=== PATIENT | female | born 1965 | race Hispanic/Latino ===

== ENCOUNTER 2023-06-02 13:48 | Emergency (ER) | payer MEDICAID, SELFPAY ==
[2023-06-02 14:00] VITALS: BP 134/72; PULSE 66; RESP 14; TEMP 37.3; O2SAT 97
--- NOTE | 2023-06-02 14:05 | ED.FEMALEGU ---
HPI - Female Genitourinary General Chief complaint: Urogenital-Female Stated complaint: urinary issue Source: patient and RN notes reviewed Mode of arrival: ambulatory Limitations: no limitations History of Present Illness HPI Narrative: 57 y/o female presented for c/o burning with urination and frequency over the past few days. Reports pain to bilateral flank areas, and nausea. Denies hematuria, fever/chills. Taking AZO. Related Data Home Medications Medication Instructions Recorded Confirmed dapagliflozin propanediol 10 mg mg 06/02/23 tablet (Farxiga) ergocalciferol (vitamin D2) 1,250 06/02/23 mcg (50,000 unit) capsule levothyroxine 25 mcg tablet mcg 06/02/23 lisinopril 20 tablet 06/02/23 mg-hydrochlorothiazide 25 mg tablet lovastatin 40 mg tablet mg 06/02/23 metformin 500 mg tablet,extended mg PO 06/02/23 release 24 hr propranolol 40 mg tablet mg 06/02/23 Allergies Allergy/AdvReac Type Severity Reaction Status Date / Time No Known Allergies Allergy Verified 06/02/23 14:42 Review of Systems Review of Systems: CONSTITUTIONAL: Denies body aches, fever, chills, or sweats. CARDIOVASCULAR: Denies chest pain, palpitations, or edema. RESPIRATORY: Denies cough or dyspnea. GASTROINTESTINAL: Denies abdominal pain, nausea, vomiting, or diarrhea. GENITOURINARY: Reports dysuria, frequency, urgency, flank pain SKIN: Denies rash, itching, or wounds. MUSCULOSKELETAL: Denies back pain or myalgia. [facility] Past Medical History Medical History (Updated 06/02/23 @ 15:05 by Genia Galdamez APRN) Diabetes Hypertension Comments At time of signature, I have reviewed and agree with nursing past medical, surgical, social and family history unless otherwise noted. Please see nursing chart for further information. There is no relevant family history pertinent to the presenting complaint Exam Narrative: GENERAL: Well-appearing and in no acute distress. HEAD: Normocephalic EYES: EOMI. . ENT: Mucous membranes pink and moist. NECK: Normal AROM. Supple. CHEST: No respiratory distress. Clear to auscultation. HEART: Regular rate and rhythm. ABDOMEN: Soft, tender to bilateral upper quadrants, nondistended, normal active bowel sounds. bilateral CVA tenderness MUSCULOSKELETAL: No bony tenderness. SKIN: Warm, dry, no rash. NEURO: No focal deficits. Alert and oriented x3. Gait steady. PSYCH: Normal affect. Course Course Emergency Course: Patient is aware of diagnosis, understands and agrees to treatment plan. Anticipatory guidance given. Patient agrees to follow-up as directed and is aware of reasons to seek care at the emergency department. Portions of this record may have been created with voice recognition software Level of Care: Express Care Visit Vital Signs Vital signs: Reviewed MDM - Female Genitourinary MDM Narrative Medical decision making narrative: Results of urine dip reviewed with patient. Discussed physical exam findings and concern for pyelo. Offered ER transfer, pt declines and would like to try abx and outpt monitoring. Advised supportive measures and signs/symptoms to go to the ER. Pt is appropriate for outpt treatment and f/u. [employer] workers supervisor services utilized to optimize communication And understanding. Differential Diagnosis Differential diagnosis: Likely urinary tract infection, cystitis and other ( Nephrolithiasis, pyelonephritis) Lab Data Labs: Urine Glucose 1+ Reference Range: Negative Urine Bilirubin Negative Reference Range: Negative Urine Ketone Negative Reference Range: Negative Urine Specific Rogers 1.025 Reference Range:1.001-1.035 Urine Blood
== END 2023-06-02 15:10 | disposition home or self-care (01) ==
PROVIDERS: Emergency Provider Nurse Practitioner Family
DX: N39.0 Urinary tract infection, site not specified (principal); E11.9 Type 2 diabetes mellitus without complications; I10 Essential (primary) hypertension
CPT/HCPCS: 81003; 87086; 87088; 99203; G0463

== ENCOUNTER 2023-07-16 11:46 | Emergency (ER) | payer MEDICAID, SELFPAY ==
--- NOTE | ~2023-07-16 | XR_ITS ---
EXAMINATION: XR chest 2V DATE: 07/16/2023 12:42 INDICATION: Cough TECHNIQUE: PA and lateral views of the chest are obtained. COMPARISON: None available FINDINGS: The lungs are free of acute opacities. No pleural effusion or pneumothorax. The cardiomedia stinal silhouette is normal. There is moderate thoracic spondylosis. IMPRESSION: 1. No acute cardiopulmonary abnormality. Reviewed, dictated and finalized at location L. [facility]
[2023-07-16 11:58] VITALS: BP 137/69; PULSE 82; RESP 16; TEMP 37.3; O2SAT 99
--- NOTE | 2023-07-16 12:34 | ED.GENADULT ---
HPI - General Adult General Chief complaint: Urogenital-Female Stated complaint: Urinary issue,back pain Source: patient Mode of arrival: ambulatory Limitations: no limitations History of Present Illness HPI narrative: Patient presents for evaluation of multiple concerns. Her primary concern is for urinary tract symptoms that she has had for 4 days. Symptoms include dysuria, urinary frequency, urgency, suprapubic pressure and bilateral low back pain. Three days ago she developed a cough but denies any shortness of breath. She now has hot flashes, chills, increased pressure in her ears, and sore throat. She had some nausea and vomiting yesterday which she attributes to vertigo. She is not taking any medication to assist with her symptoms. She is diabetic and states her home BS have been in the 160's. Her daughter and son are both ill at the present time. She informed me that neither of them has had a medical evaluation for her symptoms, however nurse here informed me that her daughter has the flu. Patient does not smoke. Related Data Home Medications Medication Instructions Recorded Confirmed dapagliflozin propanediol 10 mg mg 06/02/23 tablet (Farxiga) ergocalciferol (vitamin D2) 1,250 06/02/23 mcg (50,000 unit) capsule levothyroxine 25 mcg tablet mcg 06/02/23 lisinopril 20 tablet 06/02/23 mg-hydrochlorothiazide 25 mg tablet lovastatin 40 mg tablet mg 06/02/23 metformin 500 mg tablet,extended mg PO 06/02/23 release 24 hr propranolol 40 mg tablet mg 06/02/23 montelukast 10 mg tablet mg 07/16/23 07/16/23 Allergies Allergy/AdvReac Type Severity Reaction Status Date / Time No Known Allergies Allergy Verified 07/16/23 12:04 Review of Systems Review of Systems: CONSTITUTIONAL:Reports hot flashes and chills. EYES: Denies visual changes, redness, or discharge. ENT: Reports sore throat and increased pressure in bilateral ears. Denies rhinorrhea and congestion CARDIOVASCULAR: Denies chest pain, palpitations, or edema. RESPIRATORY: Reports cough. Denies SOB GASTROINTESTINAL: Reports abdominal pain, nausea and vomiting GENITOURINARY: Reports urinary frequency, dysuria and urgency. Denies hematuria SKIN: Denies rash or itching. MUSCULOSKELETAL: Reports low back pain. Denies joint pain, or myalgia. NEUROLOGIC: Reports vertigo yesterday, now resolved. Denies headache, numbness, or weakness. PSYCHIATRIC: Denies anxiety or depression. [facility] Past Medical History Medical History (Updated 07/16/23 @ 13:29 by ISREAL Estrada, ) Diabetes Hyperlipidemia Hypertension Surgical History Surgical History History of kidney surgery Family History Family History Mother Family history non-contributory Social History Social History Smoking status: Never smoker Substance use: never Gender identity (if verbalized by the patient): Female Sexual Orientation (if Verbalized by the Patient): Straight or Heterosexual Spiritual care concerns: No Exam Narrative: GENERAL: Well-appearing, well-nourished, and in no acute distress. HEAD: Normocephalic, atraumatic. EYES: PERRLA and EOMI. ENT: Nares clear, no rhinorrhea or epistaxis. Mucous membranes moist. Oropharynx without tonsillar hypertrophy exudate or other lesions. Bilateral TMs are bulging NECK: Supple. No adenopathy or masses. No carotid bruits or JVD CHEST: Clear to auscultation. Cough present on exam. No respiratory distress. No wheezes rales or rhonchi HEART: Regular rate and rhythm. No murmur heard. Normal peripheral pulses. ABDOMEN: Soft, nontender, nondistended, normal active bowel sounds. EXTREMITIES: Normal range of motion. No edema. SKIN: Warm, dry, no rash. NEURO: No focal deficits. Alert and oriented x3. PSYCH: Normal mood and aff
== END 2023-07-16 13:34 | disposition home or self-care (01) ==
PROVIDERS: Emergency Provider Nurse Practitioner; PCP Registered Nurse
DX: R30.0 Dysuria (principal); R35.0 Frequency of micturition; R39.15 Urgency of urination; R10.30 Lower abdominal pain, unspecified; M54.50 Low back pain, unspecified; H66.93 Otitis media, unspecified, bilateral; E11.9 Type 2 diabetes mellitus without complications; Z79.84 Long term (current) use of oral hypoglycemic drugs; E78.5 Hyperlipidemia, unspecified; I10 Essential (primary) hypertension
CPT/HCPCS: 71046; 87804; 99213; G0463

== ENCOUNTER 2023-08-21 11:47 | Emergency (ER) | payer MEDICAID, SELFPAY ==
--- NOTE | 2023-08-21 11:56 | ED.URI ---
HPI - URI/Sore Throat General Chief Complaint: Upper Respiratory Infection Stated Complaint: Sore Throat Time Seen by Provider: 08/21/23 11:56 Source: patient Mode of arrival: ambulatory Limitations: no limitations History of Present Illness HPI Narrative: 57-year-old female presents with complaint sore throat, cough, nasal congestion, left ear pain for 3 days. Afebrile. Not taking any [id number] medications to treat her symptoms. No chest pain or shortness of breath. All systems reviewed and negative except as noted above. Related Data Home Medications Medication Instructions Recorded Confirmed dapagliflozin propanediol 10 mg mg 06/02/23 tablet (Farxiga) ergocalciferol (vitamin D2) 1,250 06/02/23 mcg (50,000 unit) capsule levothyroxine 25 mcg tablet mcg 06/02/23 lisinopril 20 tablet 06/02/23 mg-hydrochlorothiazide 25 mg tablet lovastatin 40 mg tablet mg 06/02/23 metformin 500 mg tablet,extended mg PO 06/02/23 release 24 hr propranolol 40 mg tablet mg 06/02/23 montelukast 10 mg tablet mg 07/16/23 07/16/23 Allergies Allergy/AdvReac Type Severity Reaction Status Date / Time No Known Allergies Allergy Verified 07/16/23 12:04 Review of Systems Review of Systems: CONSTITUTIONAL: Denies fever, chills, or sweats. Reports fatigue. EYES: Denies visual changes, redness, or discharge. ENT: reports rhinorrhea, congestion, sore throat, left ear pain. CARDIOVASCULAR: Denies chest pain, palpitations, or edema. RESPIRATORY: Reports cough. Denies dyspnea. GASTROINTESTINAL: Denies abdominal pain, nausea, vomiting, or diarrhea. GENITOURINARY: Denies dysuria or hematuria. SKIN: Denies rash or itching. MUSCULOSKELETAL: Denies back pain, joint pain, or myalgia. NEUROLOGIC: Denies headache, numbness, or weakness. PSYCHIATRIC: Denies anxiety or depression. All other systems reviewed are negative, except as documented in HPI. [facility] Past Medical History Medical History (Updated 08/21/23 @ 12:17 by Belkis Mcintosh NP) Diabetes Hyperlipidemia Hypertension Surgical History Surgical History History of kidney surgery Family History Family History Mother Family history non-contributory Social History Social History Smoking status: Never smoker Substance use: never Gender identity (if verbalized by the patient): Female Sexual Orientation (if Verbalized by the Patient): Straight or Heterosexual Spiritual care concerns: No Comments At time of signature, agree with nursing past medical, surgical, social and family history. There is no relevant family history pertinent to the presenting complaint. Exam Narrative: GENERAL: This is a well-nourished, well-developed patient, in no apparent distress. HEAD: normocephalic, atraumatic. EYES: PERRL. Sclera clear/white. Vision is grossly intact. EARS: External ears normal, auditory canals clear and without drainage, Fluid bilateral TMs without erythema or perforation. Hearing grossly intact. NOSE: External nose normal with Clear nasal drainage with moderate congestion. THROAT: Mucous membranes moist, posterior pharynx clear. NECK: Neck supple, non-tender without lymphadenopathy, masses or thyromegaly. CARDIOVASCULAR: Regular rate and rhythm without murmurs, gallops, or rubs. RESPIRATORY: Clear to auscultation. Breath sounds equal bilaterally. No wheezes, rales, or rhonchi. SKIN: warm, Dry, intact with no suspicious lesions or rash, good texture and turgor. NEURO: awake, alert, and oriented to person, place and time. There were no obvious focal neurologic abnormalities. EXTREMITIES: No joint tenderness, effusion, or edema noted. Course Course Level of Care: Express Care Visit Vital Signs Vital signs: Vital Signs Temperature 36.
[2023-08-21 12:00] VITALS: BP 151/94; PULSE 87; RESP 16; TEMP 36.7; O2SAT 98
== END 2023-08-21 12:26 | disposition home or self-care (01) ==
PROVIDERS: Emergency Provider Nurse Practitioner Family; PCP Registered Nurse
DX: J06.9 Acute upper respiratory infection, unspecified (principal); Z20.822 Contact with and (suspected) exposure to COVID-19; E11.9 Type 2 diabetes mellitus without complications; E78.5 Hyperlipidemia, unspecified; I10 Essential (primary) hypertension
CPT/HCPCS: 87081; 87426; 87804; 87880; 99213; C9803; G0463